=== PATIENT | male | born 1955 | race Two or more races ===

== ENCOUNTER 2024-02-18 16:40 | Emergency (ER) | payer OTHER ==
[~2024-02-18] VITALS: Ht 177.8 cm; Wt 90.7 kg
[2024-02-18] MEDS ORDERED: GLUMETZA500 MG (16:53)
[2024-02-18] MEDS ORDERED: NORVASC5 MG (16:53)
[2024-02-18] MEDS ORDERED: ATACAND4 MG (16:53)
[2024-02-18 16:55] VITALS: BP 178/77; O2SAT 94
[2024-02-18] MEDS ORDERED: CETIRIZINE HCL 5 MG/5 ML ML PO ONE (17:15)
[2024-02-18] MEDS ORDERED: METOCLOPRAMIDE HCL 10 MG in DEXTROSE 5 % IN WATER 50 ML IV ONE (17:15)
[2024-02-18] MEDS ORDERED: GUAIFENESIN/DEXTROMETHORPHAN 10ML BLIST.PACK PO ONE (17:30)
[2024-02-18 17:47] LABS: HEMATOCRIT 42.2 % (39.0-48.0); MEAN CELL VOLUME 95.4 fL (80.0-100.00); MEAN CORPUSCULAR HEMOGLOBIN 31.7 pg (27.00-32.0); MEAN CORPUSCULAR HGB CONC 33.2 g/dl (32.0-36.0); PLATELET COUNT 167 K/uL (150-450); RED BLOOD COUNT 4.42 M/uL (4.00-6.00); RED CELL DISTRIBUTION WIDTH 14.5 % (11.5-14.5)
[2024-02-18 18:07] LABS: ALBUMIN 3.9 gm/dL (3.4-5.0); BILIRUBIN TOTAL 0.85 mg/dL (0.3-1.2); CALCIUM 9.9 mg/dL (8.5-10.1); CREATININE SERUM 1.07 mg/dL (0.70-1.30); GFR 69.14; GLOBULINA 3.5 G/DL (2.4-3.5); POTASSIUM 4.05 mEq/L (3.5-5.1); TOTAL PROTEIN 7.4 gm/dL (6.4-8.2)
[2024-02-18 19:58] LABS: ABG PH 7.456 (7.35-7.45); ABG PO2 79.3 mmHg (80-100); ABG pCO2 40.7 mmHg (35-45); BASE EXCESS 3.8 mmol/l; SaO2 96.4 %; Tco2 29.3 mmol/l; allen test SATISFACTORY; o2 21 %; puncture site RADIAL RIGHT
[2024-02-18] MEDS ORDERED: LACTULOSE 20 G/30 ML BLIST.PACK PO ONE (21:15)
[2024-02-18] MEDS ORDERED: MINERAL OIL 30 ML BLIST.PACK PO ONE (21:15)
[2024-02-18] MEDS ORDERED: MAGNESIUM HYDROXIDE 400 MG/5 ML ML PO ONE (21:15)
[2024-02-18] MEDS ORDERED: LACTULOSE10 GM/152 PO (21:23)
== END 2024-02-18 21:44 ==
LOC: ER 16:42
PROVIDERS: Nurse Practitioner Family
DX: R53.81 Other malaise (principal); I10 Essential (primary) hypertension; E11.9 Type 2 diabetes mellitus without complications; Z20.822 Contact with and (suspected) exposure to COVID-19
CPT/HCPCS: 36415; 74019; 82803; 93005; 96365; 99283; J2765